=== PATIENT | female | born 1995 | race African-American/Black ===

== ENCOUNTER 2023-02-12 18:31 | Emergency (ER) | payer MEDICAID, OTHER ==
[2023-02-12 19:20] LABS: #Lymphocytes 1.9 thou/uL (1.20-3.40); #Monocytes 1.1 thou/uL (0.11-0.59); #Neutrophils 9.5 thou/uL (1.40-6.50); %Basophils 0.1 % (0.0-1.0); %Eosinophils 0.4 % (0.0-10.0); %Monocytes 8.5 % (0.0-10.0); Hemoglobin 9.9 g/dL (12.0-16.0); Mean Corpuscular HGB CONC 31.6 g/dL (32.0-36.0); Mean Corpuscular Hemoglobin 20.4 pg (27.0-31.0); Mean Corpuscular Volume 64.6 fl (78.0-98.0); Mean Platelet Volume 9.5 fL (7.4-10.4); Platelet Count 336 10x3/uL (130-400); RBC Distribution Width 14.9 % (11.5-14.5); Red Blood Cell (RBC) Count 4.86 mill/uL (4.20-5.40); White Blood Cell (WBC) Count 12.5 10x3/uL (4.8-10.8)
[2023-02-12 19:37] LABS: ALT (SGPT) 13 U/L (8-55); AST (SGOT) 21 U/L (5-34); Albumin 3.7 g/dL (3.5-5.0); Alkaline Phosphatase 74 U/L (40-110); Anion Gap 14 mmol/L (10-20); BUN (Urea Nitrogen) 10 mg/dL (7.0-18.7); Bilirubin, Total 0.2 mg/dL (0.2-1.2); CK (CPK) 42 U/L (29-168); Calc. Creatinine Clearance 0 mL/min (70-130); Calcium 9.2 mg/dL (7.8-10.44); Carbon Dioxide 19 mmol/L (22-29); Chloride 104 mmol/L (98-107); Estimated GFR 117; Globulin 3.7 g/dL (2.4-3.5); Glucose 159 mg/dL (70-105); Lipase 21 U/L (8-78); Potassium 3.7 mmol/L (3.5-5.1); Protein, Total 7.4 g/dL (6.0-8.3); Sodium 133 mmol/L (136-145)
[2023-02-12 19:47] LABS: Bilirubin Negative (Negative); Blood, Urine Negative (Negative); Clarity Clear (Clear); Glucose, Urine (Dipstick) Greater than 1000 mg/dL (Negative); Ketone, Urine 40 mg/dL (Negative); Leukocyte 75 Leu/uL (Negative); Mucous/LPF Rare LPF (<2+); Nitrite Negative (Negative); Protein, Urine (Dipstick) 50 mg/dL (Neg-Trace); RBC/HPF 0-3 HPF (0-3); Urobilinogen Normal mg/dL (Less than 2)
[2023-02-12 19:54] LABS: Specific Gravity, Urine 1.051 (1.002-1.036)
[2023-02-12 19:55] LABS: Bacteria/HPF 3+ HPF (None Seen)
[2023-02-12 20:10] LABS: SARS-CoV-2 NAA Rapid Test Not Detected (NotDetected)
[2023-02-12 20:11] LABS: Elliptocytes SLIGHT = 2-5 cells (100X) (0-1/hpf); Hypochromia SLIGHT = 6-15 cells (100X) (0-5/hpf); MDiff Complete? YES; Microcytosis MODERATE=15-30 cells (100X) (0-5/hpf); Platelet Morphology Comment Appears Adequate; Reflex for Review?? YES
[2023-02-12 20:17] LABS: Actual Bicarbonate (HCO3v) 21 mEq/L (22-28); Base Excess -4.5 mEq/L (-2.0 to +3.0); Chloride (VBG) 106 mmol/L (98-106); Hemoglobin (Hb) 9.4 g/dL (11.7-15.5); Potassium (VBG) 4.11 mmol/L (3.70-5.30); Sodium 137.2 mmol/L (133-146); pH (venous) 7.35 (7.32-7.43)
== END 2023-02-12 20:40 | disposition home or self-care (01) ==
LOC: ERS 18:31
DX: O98.512 Other viral diseases complicating pregnancy, second trimester (principal); Z3A.00 Weeks of gestation of pregnancy not specified; B34.9 Viral infection, unspecified; O99.282 Endocrine, nutritional and metabolic diseases complicating pregnancy, second trimester; E86.0 Dehydration; O24.012 Pre-existing type 1 diabetes mellitus, in pregnancy, second trimester; Z20.822 Contact with and (suspected) exposure to COVID-19
CPT/HCPCS: 36415; 80053; 81003; 81015; 82010; 82550; 82805; 83690; 85025; 85060; 96360

== ENCOUNTER 2023-03-19 14:08 | Emergency (ER) | payer OTHER ==
[2023-03-19] MEDS ORDERED: Ondansetron PF 4 MG/2 ML Vial ONE (15:28)
[2023-03-19 16:10] LABS: Bacteria/HPF None Seen HPF (None Seen); Bilirubin Negative (Negative); Blood, Urine Negative (Negative); Clarity Clear (Clear); Glucose, Urine (Dipstick) Greater than 1000 mg/dL (Negative); Ketone, Urine Greater than 150 mg/dL (Negative); Leukocyte 25 Leu/uL (Negative); Nitrite Negative (Negative); Protein, Urine (Dipstick) 20 mg/dL (Neg-Trace); RBC/HPF 0-3 HPF (0-3); Specific Gravity, Urine 1.044 (1.002-1.036); Urobilinogen Normal mg/dL (Less than 2); WBC/HPF 0-3 HPF (0-3); pH, Urine 5.5 (5.0-9.0)
[2023-03-19 16:10] LABS: ALT (SGPT) 12 U/L (8-55); AST (SGOT) 25 U/L (5-34); Albumin 3.5 g/dL (3.5-5.0); Alkaline Phosphatase 75 U/L (40-110); Anion Gap 16 mmol/L (10-20); BUN (Urea Nitrogen) 8 mg/dL (7.0-18.7); Bilirubin, Total 0.3 mg/dL (0.2-1.2); Calc. Creatinine Clearance 0 mL/min (70-130); Calcium 8.7 mg/dL (7.8-10.44); Carbon Dioxide 17 mmol/L (22-29); Chloride 104 mmol/L (98-107); Estimated GFR 124; Globulin 3.6 g/dL (2.4-3.5); Glucose 156 mg/dL (70-105); Potassium 3.5 mmol/L (3.5-5.1); Protein, Total 7.1 g/dL (6.0-8.3); Sodium 133 mmol/L (136-145)
[2023-03-19 16:11] LABS: #Monocytes 0.5 thou/uL (0.11-0.59); #Neutrophils 7.4 thou/uL (1.40-6.50); %Basophils 0.1 % (0.0-1.0); %Eosinophils 0.4 % (0.0-10.0); %Lymphocytes 11.4 % (21.0-51.0); %Monocytes 5.6 % (0.0-10.0); %Neutrophils 82.5 % (42.0-75.0); Hemoglobin 9.2 g/dL (12.0-16.0); Mean Corpuscular HGB CONC 30.4 g/dL (32.0-36.0); Mean Corpuscular Hemoglobin 19.2 pg (27.0-31.0); Mean Corpuscular Volume 63.1 fl (78.0-98.0); Mean Platelet Volume 11.3 fL (7.4-10.4); Platelet Count 260 10x3/uL (130-400); RBC Distribution Width 15.9 % (11.5-14.5); Red Blood Cell (RBC) Count 4.78 mill/uL (4.20-5.40)
== END 2023-03-19 17:01 | disposition home or self-care (01) ==
LOC: ERS 14:08
DX: E86.0 Dehydration (principal); R11.10 Vomiting, unspecified; E10.9 Type 1 diabetes mellitus without complications; E03.9 Hypothyroidism, unspecified
CPT/HCPCS: 36416; 80053; 81003; 81015; 85025; 96361; 96374; J2405

== ENCOUNTER 2023-04-29 17:37 | Emergency (ER) | payer OTHER | END 2023-04-29 18:11 | disposition home or self-care (01) | LOC: ERS 17:37 | DX: Z76.0 Encounter for issue of repeat prescription (principal) | CPT/HCPCS: 99281 ==

== ENCOUNTER 2023-07-30 12:52 | Emergency (ER) | payer OTHER ==
[2023-07-30 14:12] LABS: #Eosinphils 0.1 thou/uL (0.0-0.7); #Monocytes 0.5 thou/uL (0.11-0.59); %Basophils 0.3 % (0.0-1.0); %Lymphocytes 16.1 % (21.0-51.0); %Monocytes 6.3 % (0.0-10.0); %Neutrophils 75.7 % (42.0-75.0); Hematocrit 30.2 % (36.0-47.0); Hemoglobin 8.2 g/dL (12.0-16.0); Mean Corpuscular HGB CONC 27.2 g/dL (32.0-36.0); Mean Corpuscular Hemoglobin 17.8 pg (27.0-31.0); Mean Corpuscular Volume 65.5 fl (78.0-98.0); Platelet Count 168 10x3/uL (130-400); RBC Distribution Width 19.5 % (11.5-14.5); Red Blood Cell (RBC) Count 4.61 mill/uL (4.20-5.40)
[2023-07-30 14:26] LABS: Bilirubin Negative (Negative); Blood, Urine Negative (Negative); CAUTI Indications for Culture Pregnancy; Clarity Turbid (Clear); Glucose, Urine (Dipstick) Greater than 1000 mg/dL (Negative); Ketone, Urine Trace mg/dL (Negative); Leukocyte 250 Leu/uL (Negative); Nitrite Negative (Negative); Protein, Urine (Dipstick) 30 mg/dL (Neg-Trace); RBC/HPF 0-3 HPF (0-3); Specific Gravity, Urine 1.037 (1.002-1.036); Urobilinogen 3 mg/dL (Less than 2)
[2023-07-30 14:27] LABS: Bacteria/HPF 1+ HPF (None Seen)
[2023-07-30 14:28] LABS: Urine Culture Reflex Yes Yes
[2023-07-30 14:31] LABS: ALT (SGPT) 10 U/L (8-55); AST (SGOT) 21 U/L (5-34); Albumin 2.8 g/dL (3.5-5.0); Alkaline Phosphatase 151 U/L (40-110); Anion Gap 11 mmol/L (10-20); BUN (Urea Nitrogen) 7 mg/dL (7.0-18.7); Bilirubin, Total 0.2 mg/dL (0.2-1.2); Calc. Creatinine Clearance 0 mL/min (70-130); Calcium 8.5 mg/dL (7.8-10.44); Carbon Dioxide 20 mmol/L (22-29); Chloride 109 mmol/L (98-107); Estimated GFR 124; Globulin 2.8 g/dL (2.4-3.5); Glucose 139 mg/dL (70-105); Potassium 3.5 mmol/L (3.5-5.1); Protein, Total 5.6 g/dL (6.0-8.3); Sodium 136 mmol/L (136-145)
[2023-07-30 14:48] LABS: Anisocytosis SLIGHT = 6-15 cells HPF (0-5); Burr Cells SLIGHT = 2-5 cells HPF (0-1); CellaVision Operator ID LAB.MJL; Elliptocytes SLIGHT = 2-5 cells HPF (0-1); Hypochromia SLIGHT = 6-15 cells HPF (0-5); Microcytosis SLIGHT = 6-15 cells HPF (0-5); Ovalocytes SLIGHT = 2-5 cells HPF (0-1); Platelet Adequacy Comment Platelets Normal; Poikilocytosis SLIGHT = 6-15 cells HPF (0-5); Polychromasia MODERATE = 3-4 cells HPF (0-2); Schistocytes SLIGHT = 2-5 cells HPF (0-1); Tear Drops SLIGHT = 2-5 cells HPF (0-1)
[2023-07-30] MEDS ORDERED: diphenhydrAMINE 50 MG/ML VIAL ONE (14:52)
[2023-07-30] MEDS ORDERED: Metoclopramide HCl 10 MG/2 ML VIAL ONE (14:52)
== END 2023-07-30 16:21 | disposition home or self-care (01) ==
LOC: ERS 12:52
DX: O12.13 Gestational proteinuria, third trimester (principal); O99.283 Endocrine, nutritional and metabolic diseases complicating pregnancy, third trimester; E10.65 Type 1 diabetes mellitus with hyperglycemia; O99.891 Other specified diseases and conditions complicating pregnancy; R51.9 Headache, unspecified; E03.9 Hypothyroidism, unspecified; Z79.84 Long term (current) use of oral hypoglycemic drugs; Z79.899 Other long term (current) drug therapy; Z3A.34 34 weeks gestation of pregnancy
CPT/HCPCS: 36415; 80053; 81001; 85025; 87086; 96365; 96375; J1200; J2765

== ENCOUNTER 2024-12-03 12:58 | Inpatient (IN) | payer OTHER ==
[2024-12-03] MEDS ORDERED: INSULIN REGULAR IN 0.9 % NACL 100 ML ONE (13:17)
[2024-12-03 13:51] LABS: Analyzer IN Cardio ER; Base Excess -27.7 mEq/L (-2.0 to +3.0); Chloride (VBG) 108 mmol/L (98-106); Hematocrit-VBG 39 % (36.0-47.0); Hemoglobin (Hb) 13.2 g/dL (11.7-15.5); Potassium (VBG) 5.65 mmol/L (3.70-5.30); Sodium 143 mmol/L (133-146)
[2024-12-03 13:54] LABS: Actual Bicarbonate (HCO3v) 3.5 mEq/L (22-28)
[2024-12-03 13:59] LABS: #Basophils 0.04 10x3/uL (0.0-0.2); #Eosinophils Less than 0.03 10x3/uL (0.0-0.7); %Basophils 0.2 % (0.0-1.0); %Eosinophils 0.1 % (0.0-10.0); %Lymphocytes 6.7 % (21.0-51.0); %Monocytes 14.8 % (0.0-10.0); Hematocrit 44.1 % (36.0-47.0); Mean Corpuscular HGB CONC 27.2 g/dL (32.0-36.0); Mean Corpuscular Volume 77.1 fL (78.0-98.0); Mean Platelet Volume 10.1 fL (7.4-10.4); Platelet Count 312 10x3/uL (130-400); RBC Distribution Width 16.7 % (11.5-14.5); Red Blood Cell (RBC) Count 5.72 mill/uL (4.20-5.40)
[2024-12-03 14:40] LABS: ALT (SGPT) 26 U/L (8-55); AST (SGOT) 42 U/L (5-34); Albumin 3.6 g/dL (3.5-5.0); Alkaline Phosphatase 114 U/L (40-110); BUN (Urea Nitrogen) 22 mg/dL (7.0-18.7); Bilirubin, Total 0.1 mg/dL (0.2-1.2); Calc. Creatinine Clearance 0 mL/min (70-130); Calcium 8.5 mg/dL (7.8-10.44); Carbon Dioxide Less than 8 mmol/L (22-29); Chloride 113 mmol/L (98-107); Estimated GFR 59; Globulin 4.4 g/dL (2.4-3.5); Glucose 389 mg/dL (70-105); Potassium 5.6 mmol/L (3.5-5.1); Sodium 139 mmol/L (136-145)
[2024-12-03] MEDS ORDERED: Sodium Chloride 0.9% 1,000 ML IV PRN ×3 (15:58)
[2024-12-03] MEDS ORDERED: Electrolyte Replacement Protocol IVPB SCH (15:58)
[2024-12-03] MEDS ORDERED: D5 1/2 NS w/20 mEq KCL 1,000 ML IV PRN (15:58)
[2024-12-03] MEDS ORDERED: NS 0.9% w/ 20 MEQ KCL 1,000 ML IV PRN (15:58)
[2024-12-03] MEDS ORDERED: Acetaminophen 500 MG TAB PO PRN (16:02)
[2024-12-03 17:31] VITALS: BMI 24.2
[2024-12-03] MEDS ORDERED: Acetaminophen 325 MG TAB PO PRN (17:32)
[2024-12-03] MEDS: Sodium Chloride 0.9% 1,000 ML IV PRN (18:05)
[2024-12-03 18:28] LABS: Anion Gap 26 mmol/L (10-20); BUN (Urea Nitrogen) 20 mg/dL (7.0-18.7); Calc. Creatinine Clearance 82 mL/min (70-130); Calcium 8.1 mg/dL (7.8-10.44); Carbon Dioxide Less than 8 mmol/L (22-29); Chloride 118 mmol/L (98-107); Estimated GFR 70; Glucose 223 mg/dL (70-105); Potassium 4.9 mmol/L (3.5-5.1); Sodium 144 mmol/L (136-145)
[2024-12-03] MEDS: NS 0.9% w/ 20 MEQ KCL 1,000 ML IV PRN (18:46)
[2024-12-03 20:29] LABS: Anion Gap 26 mmol/L (10-20); BUN (Urea Nitrogen) 19 mg/dL (7.0-18.7); Calc. Creatinine Clearance 89 mL/min (70-130); Carbon Dioxide Less than 8 mmol/L (22-29); Chloride 120 mmol/L (98-107); Estimated GFR 77; Glucose 107 mg/dL (70-105); Potassium 4.8 mmol/L (3.5-5.1); Sodium 147 mmol/L (136-145)
[2024-12-03] MEDS: Dextrose 50% Abboject 50 ML SYRINGE SLOW IVP PRN (20:29)
[2024-12-03] MEDS: Dextrose 5 %-0.45 % NaCl 1,000 ML IV PRN (20:42)
[2024-12-03] MEDS: Oseltamivir 75 MG CAP PO SCH (21:00)
[2024-12-04 01:27] LABS: Anion Gap 20 mmol/L (10-20); BUN (Urea Nitrogen) 12 mg/dL (7.0-18.7); Calc. Creatinine Clearance 100 mL/min (70-130); Calcium 8.1 mg/dL (7.8-10.44); Carbon Dioxide 10 mmol/L (22-29); Chloride 117 mmol/L (98-107); Estimated GFR 84; Glucose 182 mg/dL (70-105); Sodium 143 mmol/L (136-145)
[2024-12-04 04:18] LABS: #Basophils Less than 0.03 10x3/uL (0.0-0.2); #Eosinophils Less than 0.03 10x3/uL (0.0-0.7); %Basophils 0.1 % (0.0-1.0); %Lymphocytes 14.8 % (21.0-51.0); %Neutrophils 72.5 % (42.0-75.0); Hematocrit 33.5 % (36.0-47.0); Hemoglobin 9.6 g/dL (12.0-16.0); Mean Corpuscular HGB CONC 28.7 g/dL (32.0-36.0); Mean Corpuscular Hemoglobin 20.8 pg (27.0-31.0); Mean Corpuscular Volume 72.7 fL (78.0-98.0); Mean Platelet Volume 9.4 fL (7.4-10.4); Platelet Count 228 10x3/uL (130-400); RBC Distribution Width 16.7 % (11.5-14.5); Red Blood Cell (RBC) Count 4.61 mill/uL (4.20-5.40)
[2024-12-04 04:57] LABS: Anion Gap 15 mmol/L (10-20); BUN (Urea Nitrogen) 11 mg/dL (7.0-18.7); Calc. Creatinine Clearance 103 mL/min (70-130); Calcium 7.9 mg/dL (7.8-10.44); Carbon Dioxide 13 mmol/L (22-29); Chloride 117 mmol/L (98-107); Estimated GFR 88; Glucose 187 mg/dL (70-105); Potassium 3.9 mmol/L (3.5-5.1); Sodium 141 mmol/L (136-145)
[2024-12-04] MEDS: Levothyroxine Sodium 50 MCG TAB PO SCH (05:07)
[2024-12-04] MEDS: INSULIN REGULAR IN 0.9 % NACL 100 ML IVPB SCH (07:55)
[2024-12-04 08:19] LABS: Anion Gap 13 mmol/L (10-20); BUN (Urea Nitrogen) 9 mg/dL (7.0-18.7); Calc. Creatinine Clearance 120 mL/min (70-130); Calcium 7.9 mg/dL (7.8-10.44); Carbon Dioxide 15 mmol/L (22-29); Chloride 116 mmol/L (98-107); Estimated GFR 105; Glucose 181 mg/dL (70-105); Potassium 3.1 mmol/L (3.5-5.1); Sodium 141 mmol/L (136-145)
[2024-12-04] MEDS: Enoxaparin 40 MG (0.4 mL) SYRINGE SC SCH (09:20)
[2024-12-04] MEDS: Pantoprazole 40 MG VIAL IVP SCH (09:20)
[2024-12-04 09:37] LABS: Phosphorus Less than 0.7 mg/dL (2.3-4.7)
[2024-12-04] MEDS: Potassium Phosphate 30 MMOL in Sodium Chloride 0.9% 250 ML 250 ML IVPB SCH (13:29)
[2024-12-04] MEDS: Potassium Phosphate 30 MMOL in Sodium Chloride 0.9% 500 ML IVPB SCH (14:15)
[2024-12-04] MEDS: Potassium Chloride 20 MEQ in Premix 1 BAG IVPB SCH ×2 (15:04→23:50)
[2024-12-04 15:14] LABS: Magnesium 1.6 mg/dL (1.6-2.6)
[2024-12-04 15:40] LABS: Anion Gap 10 mmol/L (10-20); BUN (Urea Nitrogen) 5 mg/dL (7.0-18.7); Calc. Creatinine Clearance 136 mL/min (70-130); Carbon Dioxide 19 mmol/L (22-29); Chloride 114 mmol/L (98-107); Estimated GFR 121; Glucose 160 mg/dL (70-105); Potassium 3.3 mmol/L (3.5-5.1); Sodium 140 mmol/L (136-145)
[2024-12-04] MEDS ORDERED: Electrolyte Replacement Protocol FS PRN (15:45)
[2024-12-04] MEDS: Magnesium 2 GM/50 ML(in water) 2 GM in Premix 1 BAG IVPB SCH (15:54)
[2024-12-04 18:34] LABS: Anion Gap 14 mmol/L (10-20); BUN (Urea Nitrogen) 4 mg/dL (7.0-18.7); Calc. Creatinine Clearance 116 mL/min (70-130); Calcium 7.8 mg/dL (7.8-10.44); Carbon Dioxide 15 mmol/L (22-29); Chloride 112 mmol/L (98-107); Estimated GFR 100; Glucose 301 mg/dL (70-105); Potassium 3.5 mmol/L (3.5-5.1); Sodium 137 mmol/L (136-145)
[2024-12-04 23:29] LABS: Anion Gap 11 mmol/L (10-20); BUN (Urea Nitrogen) Less than 4 mg/dL (7.0-18.7); Calc. Creatinine Clearance 151 mL/min (70-130); Calcium 7.7 mg/dL (7.8-10.44); Carbon Dioxide 17 mmol/L (22-29); Chloride 114 mmol/L (98-107); Estimated GFR 125; Glucose 166 mg/dL (70-105); Potassium 3.3 mmol/L (3.5-5.1); Sodium 139 mmol/L (136-145)
[2024-12-05 03:29] LABS: #Basophils Less than 0.03 10x3/uL (0.0-0.2); #Eosinophils Less than 0.03 10x3/uL (0.0-0.7); %Lymphocytes 29.1 % (21.0-51.0); %Monocytes 9.9 % (0.0-10.0); %Neutrophils 60.7 % (42.0-75.0); Hemoglobin 9.2 g/dL (12.0-16.0); Mean Corpuscular HGB CONC 28.8 g/dL (32.0-36.0); Mean Corpuscular Volume 72.9 fL (78.0-98.0); Mean Platelet Volume 9.4 fL (7.4-10.4); Platelet Count 174 10x3/uL (130-400); Red Blood Cell (RBC) Count 4.39 mill/uL (4.20-5.40)
[2024-12-05 03:49] LABS: Anion Gap 11 mmol/L (10-20); BUN (Urea Nitrogen) Less than 4 mg/dL (7.0-18.7); Calc. Creatinine Clearance 156 mL/min (70-130); Calcium 7.5 mg/dL (7.8-10.44); Carbon Dioxide 17 mmol/L (22-29); Chloride 113 mmol/L (98-107); Estimated GFR 126; Glucose 145 mg/dL (70-105); Magnesium 1.6 mg/dL (1.6-2.6); Potassium 3.2 mmol/L (3.5-5.1); Sodium 138 mmol/L (136-145)
[2024-12-05 03:51] LABS: Iron 50 ug/dL (50-170); Iron Binding Capacity, Total 359 mcg/dL (265-497); Transferrin, Serum 287 mg/dL (180-382)
[2024-12-05 03:52] LABS: Iron 50 ug/dL (50-170); Iron Binding Capacity, Total 355 mcg/dL (265-497)
[2024-12-05 03:53] LABS: Phosphorus 1.1 mg/dL (2.5-4.5)
[2024-12-05] MEDS: Potassium Phosphate 22 MMOL in Sodium Chloride 0.9% 250 ML 250 ML IVPB SCH (04:28)
[2024-12-05] MEDS: Magnesium 2 GM/50 ML(in water) 2 GM in Premix 1 BAG IVPB SCH ×2 (05:04→08:50)
[2024-12-05] MEDS: Potassium Bicarbonate/Cit Ac 20 MEQ TAB PO SCH (06:04)
[2024-12-05] MEDS: Potassium Phosphate 30 MMOL in Sodium Chloride 0.9% 250 ML 250 ML IVPB SCH ×2 (06:40→08:50)
[2024-12-05] MEDS: Potassium Chloride 20 MEQ in Premix 1 BAG IVPB SCH (06:59)
[2024-12-05] MEDS: Calcium Chloride 13.6 MEQ in Sodium Chloride 0.9% 100 ML IVPB SCH (07:28)
[2024-12-05 10:05] LABS: Anion Gap 11 mmol/L (10-20); BUN (Urea Nitrogen) Less than 4 mg/dL (7.0-18.7); Calc. Creatinine Clearance 168 mL/min (70-130); Carbon Dioxide 17 mmol/L (22-29); Chloride 112 mmol/L (98-107); Estimated GFR 126; Glucose 253 mg/dL (70-105); Magnesium 2.2 mg/dL (1.6-2.6); Potassium 4.1 mmol/L (3.5-5.1); Sodium 136 mmol/L (136-145)
[2024-12-05 10:15] LABS: Phosphorus 2.3 mg/dL (2.5-4.5)
[2024-12-05] MEDS ORDERED: HumaLOG 300 UNITS/3 ML VIAL SC PRN (10:40)
[2024-12-05] MEDS: Insulin Glargine 30 UNITS/0.3 ML VIAL SC SCH (10:52)
[2024-12-05] MEDS: Lactated Ringer's 1,000 ML IV SCH (11:15)
[2024-12-05] MEDS: Insulin Lispro 100 UNIT/ML 10 ML VIAL SC PRN (16:24)
[2024-12-06 06:33] LABS: #Basophils Less than 0.03 10x3/uL (0.0-0.2); #Eosinophils Less than 0.03 10x3/uL (0.0-0.7); %Basophils 0.2 % (0.0-1.0); %Eosinophils 0.2 % (0.0-10.0); %Lymphocytes 46.1 % (21.0-51.0); %Monocytes 6.7 % (0.0-10.0); %Neutrophils 46.6 % (42.0-75.0); Hematocrit 28.1 % (36.0-47.0); Hemoglobin 8.6 g/dL (12.0-16.0); Mean Corpuscular HGB CONC 30.6 g/dL (32.0-36.0); Mean Corpuscular Hemoglobin 21.2 pg (27.0-31.0); Mean Corpuscular Volume 69.4 fL (78.0-98.0); Platelet Count 147 10x3/uL (130-400); RBC Distribution Width 16.8 % (11.5-14.5); Red Blood Cell (RBC) Count 4.05 mill/uL (4.20-5.40)
[2024-12-06 06:51] LABS: Anion Gap 10 mmol/L (10-20); BUN (Urea Nitrogen) 4 mg/dL (7.0-18.7); Calc. Creatinine Clearance 197 mL/min (70-130); Calcium 8.1 mg/dL (7.8-10.44); Carbon Dioxide 24 mmol/L (22-29); Chloride 107 mmol/L (98-107); Estimated GFR 131; Glucose 189 mg/dL (70-105); Potassium 3.4 mmol/L (3.5-5.1); Sodium 138 mmol/L (136-145)
[2024-12-06] MEDS: Potassium Chloride 20 MEQ TAB PO SCH (08:43)
[2024-12-06] MEDS: Pantoprazole 40 MG DR.TAB PO SCH (08:43)
[2024-12-06] MEDS: Insulin Glargine 30 UNITS/0.3 ML VIAL SC SCH (08:43)
[2024-12-06 08:53] VITALS: TEMP 98.2
[2024-12-06 11:27] VITALS: BP 127/86
== END 2024-12-06 11:43 | disposition home or self-care (01) | DRG 638 ==
LOC: ERS 12:58 → CCU 15:23 → T4-A 12-05 16:27
PROVIDERS: ADMIT Student in an Organized Health Care Education/Training Program; ATTEND Internal Medicine
DX: E10.10 Type 1 diabetes mellitus with ketoacidosis without coma (principal); N17.9 Acute kidney failure, unspecified; E03.9 Hypothyroidism, unspecified; I10 Essential (primary) hypertension; J10.1 Influenza due to other identified influenza virus with other respiratory manifestations; E83.42 Hypomagnesemia; D50.9 Iron deficiency anemia, unspecified; E83.51 Hypocalcemia; Z79.4 Long term (current) use of insulin; Z79.899 Other long term (current) drug therapy
CPT/HCPCS: 36415; 36416; 36600; 71045; 71275; 80048; 80053; 81001; 82010; 82728; 82805; 83540; 83550; 83605; 83690; 83735; 83880; 84100; 84443; 84466; 84484; 84703; 85025; 85046; 87040; 87077; 87086; 87149; 87428; 93005; 96361; 96374; 96375; J1650; J1815; J2470; J2543; J3370; J3475; J3480; J7030; J7042; J7050; J7070; J7120; J7999; Q9967